=== PATIENT | female | born 1960 | race Caucasian/White ===

== ENCOUNTER 2018-06-25 13:07 | Observation (INO) ==
--- NOTE | 2018-06-25 13:33 | EKG Report ---
Test Performed on : 06/25/2018 1:29:26 PM Test Reason : tachycardia Blood Pressure : / mmHG Vent. Rate : 113 BPM Atrial Rate : 340 BPM P-R Int : 000 ms QRS Dur : 086 ms QT Int : 326 ms P-R-T Axes : 000 026 005 degrees QTc Int : 447 ms Atrial fibrillation. with rapid ventricular response. Abnormal ECG When compared with ECG of 25-MAR-2009 19:22, Atrial fibrillation. has replaced Sinus rhythm. Vent. rate has increased BY 41 BPM Nonspecific T wave abnormality now evident in Inferior leads Nonspecific T wave abnormality now evident in Anterolateral leads Unconfirmed Result
[2018-06-25] MEDS ORDERED: ASPIRIN PO ONE (13:58)
[2018-06-25] MEDS ORDERED: LOVENOX 1 MG/KG SUBQ ONE (13:58)
[2018-06-25] MEDS ORDERED: LOPRESSOR PO ONE (13:58)
[2018-06-25] MEDS ORDERED: CARDIZEM IV ONE (13:58)
[2018-06-25 14:00] LABS: BE -1.6 mmoll (-3.0-3.0); BLOOD TYPE ARTERIAL; HCO3-(ACT) 23.6 mmoll (20.0-26.0); METHB 1.3 % (0.0-1.5); O2(CT) 17.5 mL/dL (15.0-23.0); O2HB 94.8 % (95.0-99.0); PCO2(98.6) 31 mmHg (35-45); PO2(98.6) 79 mmHg (60-100); SAMPLE BLOOD; SAO2 98.2 % (95.0-100.0); THB 13.1 g/dL (11.5-17.4); pH(98.6) 7.45 (7.35-7.45)
[2018-06-25 14:03] LABS: ALLEN TEST NO; MODALITY ROOM AIR
[2018-06-25] MEDS ORDERED: LOVENOX ONE (14:24)
[2018-06-25 14:27] LABS: BASO# 0.05 X1000 (0.0-0.2); BASO% 0.5 % (0.0-0.8); EOS# 0.13 X1000 (0.0-0.7); EOS% 1.4 % (0.0-10.0); HEMATOCRIT 39.7 % (37.0-47.0); HEMOGLOBIN 13.6 g/dL (12.0-16.0); IMM GRAN# 0.03 X1000 (0.0-0.04); IMM GRAN% 0.3 % (0.0-0.5); LYMPH% 42.6 % (20.5-51.1); MCH 31.4 PG (27-31); MCHC 34.3 g/dL (33-37); MCV 91.7 FL (81-99); MONO# 0.71 X1000 (0.11-0.59); MONO% 7.6 % (1.7-9.3); MPV 10.5 FL (7.4-10.4); NEUT# 4.48 X1000 (1.4-6.5); NEUT% 47.6 % (42.2-75.2); PLT 292 X1000 (130-400); RBC 4.33 XMIL (4.2-5.4); RDW 13.4 % (11.5-14.5)
[2018-06-25 14:42] LABS: INFLUENZA A NEGATIVE (NEGATIVE); INFLUENZA B NEGATIVE (NEGATIVE)
[2018-06-25 14:42] LABS: PROTIME 13.7 Seconds (11.0-16.0)
[2018-06-25 14:43] LABS: PTT 27.8 Seconds (22.3-41.8)
[2018-06-25 14:46] LABS: AGAP 14; ALBUMIN 4.2 g/dL (3.5-5.0); ALKALINE PHOSPHATASE 112 U/L (32-104); BUN 15 mg/dL (8-22); CALCIUM 8.8 mg/dL (8.8-10.2); CHLORIDE 102 mmol/L (98-107); CK PROFILE 100 U/L (24-173); COSMO 276; CREATININE 0.5 mg/dL (0.5-0.9); ESTIMATED GFR > 60; GLUCOSE 85 mg/dL (70-104); GOT 52 U/L (10-30); GPT 22 U/L (10-36); POTASSIUM 4.8 mmol/L (3.5-5.1); SODIUM 138 mmol/L (136-145); TCO2 22 mmol/L (25-35)
[2018-06-25 14:50] LABS: BILIRUBIN URINE NEGATIVE (NEGATIVE); BLOOD URINE NEGATIVE (NEGATIVE); CLARITY CLEAR (CLEAR); COLOR YELLOW; GLUCOSE URINE NEGATIVE (NEGATIVE); KETONE URINE NEGATIVE (NEGATIVE); LEUKOCYTES URINE TRACE (NEGATIVE); NITRITE URINE NEGATIVE (NEGATIVE); PH URINE 6.5; PROTEIN URINE NEGATIVE (NEGATIVE); SP GRAVITY URINE 1.015; UROBILINOGEN URINE NORMAL
[2018-06-25 14:52] LABS: URINE SOURCE CLEAN CATCH
[2018-06-25 14:53] LABS: URINE BACTERIA 4+ /HFP; URINE CAST NONE SEEN /LPF; URINE CRYSTAL NONE SEEN /HPF; URINE EPITHELIAL CELLS <10 /HPF (<10); URINE RBC <10 /HPF (<10); URINE WBC <10 /HPF (<10); URINE YEAST NONE SEEN /HPF
[2018-06-25 14:59] LABS: UR AMPHETAMINES QUAL NONE DETECTED (NONE DETECT); UR BARBITUATES QUAL NONE DETECTED (NONE DETECT); UR BENZODIAZEPIN QUAL NONE DETECTED (NONE DETECT); UR CANNABINOIDS QUAL NONE DETECTED (NONE DETECT); UR COCAINE QUAL NONE DETECTED (NONE DETECT); UR METHADONE QUAL NONE DETECTED (NONE DETECT); UR METHAMPHETAMINE QUAL NONE DETECTED (NONE DETECT); UR OPIATES QUAL NONE DETECTED (NONE DETECT); UR OXYCODONE QUAL NONE DETECTED (NONE DETECT); UR PCP QUAL NONE DETECTED (NONE DETECT); UR PROPOXYPHENE QUAL NONE DETECTED (NONE DETECT); UR TCA QUAL NONE DETECTED (NONE DETECT)
--- NOTE | 2018-06-25 15:15 | Diag Imaging Result Doc PS360 ---
EXAM: CT HEAD W/O CONTRAST - 06/25/2018 HISTORY: dizziness, afib TECHNIQUE: CT head without contrast COMPARISON: None. FINDINGS: There is no evidence of intracranial hemorrhage, mass effect, midline shift, or hydrocephalus. There is no evidence of infarct, although acute infarcts may not be immediately visible. There is no evidence of skull fracture. Visualized portions of paranasal sinuses and mastoid air cells appear clear. IMPRESSION: No visible acute intracranial abnormality. This exam was performed using automated exposure control, adjustment of mA or kV according to patient size, and/or use of iterative reconstruction technique. Electronically signed by Claudy Potts 06/25/2018 3:13 PM
--- NOTE | 2018-06-25 15:32 | Diag Imaging Result Doc PS360 ---
EXAM: CT ANGIOGRM PULMONARY ARTERIES - 06/25/2018 HISTORY: difficulty breathing, left chest pain TECHNIQUE: CT angiogram pulmonary arteries with intravenous contrast. Axial, 2-D coronal MIP, and 3-D MIP images are obtained. COMPARISON: None. FINDINGS: There are no filling defects identified in the pulmonary arteries. There is no indication of aortic dissection. There is mild cardiomegaly. There is some hazy atelectasis or edema bilaterally. There is no dense consolidation, pleural effusion, or pneumothorax identified. IMPRESSION: No evidence of pulmonary embolism. Mild cardiomegaly. Possible mild pulmonary edema. No discrete pneumonia. Electronically signed by Claudy Potts 06/25/2018 3:30 PM
[2018-06-25] MEDS ORDERED: LASIX IV ONE (16:19)
--- NOTE | 2018-06-25 16:28 | PROVIDER DOCUMENTATION ---
This chart was entered by Elizabeth Evans Scribe, acting as scribe for Jez Swartz MD. HPI-General Adult - General Chief Complaint: Fall Stated Complaint: FALL 06/22 @HOME, LT RIB PAIN Time Seen by Provider: 06/25/18 13:35 Source: patient Allergies/Adverse Reactions: Patient Allergies Allergy/AdvReac Type Severity Reaction Status Date / Time sulfamethoxazole Allergy Intermediate fever, Verified 06/25/18 13:16 [From ] nausea and rash trimethoprim [From ] Allergy Intermediate fever, Verified 06/25/18 13:16 nausea and rash Home Medications: Home Medication List Medication Instructions Recorded Confirmed Last Taken Type Cyclobenzaprine [Flexeril] 10 mg PO TID #20 tab 12/30/17 Unknown Rx Ketorolac [Toradol] 10 mg PO Q6H PRN PRN #6 tab 12/30/17 Unknown Rx - History of Present Illness -Gen Adult Nature of Presenting Problems: Patient is a 58 year old female who presents to the ED with left side rib pain. Patient states she fell a few days ago landing on left side ribs. Patient states shortness of breath. Patient also states symptoms of headache, nausea, and dizziness that have been present for a while. Location of Pain/Injury: reports: other (left side ribs) Pain Radiation: reports: no radiation Quality of Pain: reports: aching Severity: reports: mild Onset/Duration: reports: 3 days ago Timing: reports: still present Context/Activities at Onset: reports: light activity Modifying Factors: improves with: nothing Associated Symptoms: reports: shortness of breath Similar Symptoms Previously?: Yes Recently seen or treated by another doctor?: No Review of Systems - Adult - REVIEW OF SYSTEMS - ADULT Constitutional: reports: no symptoms reported Eyes: reports: no symptoms reported Ears, Nose, Mouth & Throat: reports: no symptoms reported Cardiovascular: reports: no symptoms reported Respiratory: reports: shortness of breath. denies: cough, wheezing Gastrointestinal: reports: nausea. denies: abdominal pain, diarrhea, vomiting Genitourinary: reports: no symptoms reported Musculoskeletal: reports: other (left side rib pain). denies: back pain, neck pain Integumentary: reports: no symptoms reported Neurological: reports: dizziness/vertigo (dizziness), headache/migraines ([place]). denies: numbness, seizure, syncope Psychiatric: reports: no symptoms reported Endocrine: reports: no symptoms reported Hematologic/Lymphatic: reports: no symptoms reported Allergic/Immunologic: reports: no symptoms reported All Other Systems: Reviewed and Negative Past History - Adult - PAST MEDICAL HISTORY-ADULT Review of Records: reports: Nursing Assessment Review, Medications Reviewed, Social history reviewed & non-contributory. Major Childhood Illnesses: reports: denies history Cardiovascular: reports: denies history Respiratory: reports: denies history Gastrointestinal: reports: denies history Obstetrical/Gynecological: reports: denies history Genitourinary: reports: denies history Musculoskeletal: reports: chronic pain (neck and back) Neurological: reports: denies history Psychiatric: reports: denies history Endocrine/Immune: reports: denies history Other Conditions: reports: denies history - PRIOR SURGERIES/PROCEDURES Surgical/Procedure History: reports: reviewed, not pertinent - PRIOR HOSPITALIZATIONS Prior Hospitalizations: reports: none - IMMUNIZATION STATUS Childhood Immunizations: NUTD, See Nurse Assessment Flu Vaccine: See Nurse Assessment - FAMILY HISTORY Family History: reviewed, not pertinent - SOCIAL HISTORY Smoking: denies Substance Use: denies Living Situation: family Physical Exam-General - PHYSICAL EXAM-ADULT Initial Vital Signs Reviewed: Yes - CONSTITUTIONAL General Appearance: alert, no apparent distress - HEAD, EARS, NOSE, MOUTH & THROAT HENMT: normal ENT inspection - RESPIRATORY Respiratory: chest non-tender, lungs clear, normal breath sounds - CARDIOVASCULAR Cardiovascular: tachycardia, irregularly irregular - GASTROINTESTINAL (ABDOMEN) Abdominal Exam: normal bowel sounds, non tender, soft - MUSCULOSKELETAL Extremity: non-tender, normal inspection - SKIN Integumentary: normal color, normal turgor, warm/dry - NEUROLOGIC Neurologic: grossly normal - PSYCHIATRIC Psych/Mental Status: normal mood/affect, oriented x 3 Progress - PLAN OF CARE/RESULTS Progress/Plan/Lab Results: Vital Signs - 8 hr 06/25/18 13:12 Temperature 97.7 F Pulse Rate 120 H Respiratory Rate 18 Blood Pressure 136/89 O2 Sat by Pulse Oximetry 99 Orders Category Date Time Status Nursing- Obtain EKG once Care 06/25/18 13:37 Active Saline Loc NOW Care 06/25/18 13:37 Active ABG [RESP] Routine Lab 06/25/18 13:37 Ordered CBC WITH ELECTRONIC DIFF [HEME] Stat Lab 06/25/18 13:37 Uncollected CK PROFILE [SP CHEM] Stat Lab 06/25/18 13:41 Uncollected COMPREHENSIVE METABOLIC PANEL [CHEM] Stat Lab 06/25/18 13:37 Uncollected D-DIMER [COAG] Stat Lab 06/25/18 13:[address] Stat Lab 06/25/18 13:38 Uncollected PRO B-NATRIURETIC PEPTIDE Stat Lab 06/25/18 13:38 Uncollected PROTIME WITH INR [COAG] Stat Lab 06/25/18 13:38 Uncollected PTT [COAG] Stat Lab 06/25/18 13:38 Uncollected TROPONIN T Stat Lab 06/25/18 13:38 Uncollected TYPE & SCREEN [BBK] Stat Lab 06/25/18 13:[address] W/POSS RFLX CULT [URINALYSIS] Stat Lab 06/25/18 13:38 Uncollected URINE DRUG SCREEN PL Stat Lab 06/25/18 13:38 Uncollected EKG [EKG] Stat Ther 06/25/18 13:26 Draft EKG [EKG] Stat Ther 06/25/18 13:37 Ordered Result Diagrams: 06/25/18 14:15 06/25/18 14:15 - REASSESSMENT Reassessment #1 Time Reassessed: 16:26 Status: improving Reassessment Comment: rate controlled, states feels better. - EKG 1 Time of EKG reading by physician:: 13:29 EKG Read and Signed by:: Jez Swartz EKG Interpretation (*Must complete 3 of following elements*): Abnormal Rate: 113 Rhythm: atrial fibrillation with rapid ventricular response Comments: abnormal ECG - CT/MRI 1 CT Study: Head Impression: See EMR Report ( EXAM: CT HEAD W/O CONTRAST - 06/25/2018 HISTORY: dizziness, afib TECHNIQUE: CT head without contrast COMPARISON: None. FINDINGS: There is no evidence of intracranial hemorrhage, mass effect, midline shift, or hydrocephalus. There is no evidence of infarct, although acute infarcts may not be immediately visible. There is no evidence of skull fracture. Visualized portions of paranasal sinuses and mastoid air cells appear clear. IMPRESSION: No visible acute intracranial abnormality. This exam was performed using automated exposure control, adjustment of mA or kV according to patient size, and/or use of iterative reconstruction technique. Electronically signed by Claudy Potts 06/25/2018 3:13 PM 06/25/18 1513 Interpreting Physician: Claudy Potts MD Dictated Date/Time: 06/25/18 1509 cc: Jez Swartz MD; None,PCP) 2 CT Study: Angiogram Impression: See EMR Report ( EXAM: CT ANGIOGRM PULMONARY ARTERIES - 06/25/2018 HISTORY: difficulty breathing, left chest pain TECHNIQUE: CT angiogram pulmonary arteries with intravenous contrast. Axial, 2-D coronal MIP, and 3-D MIP images are obtained. COMPARISON: None. FINDINGS: There are no filling defects identified in the pulmonary arteries. There is no indication of aortic dissection. There is mild cardiomegaly. There is some hazy atelectasis or edema bilaterally. There is no dense consolidation, pleural effusion, or pneumothorax identified. IMPRESSION: No evidence of pulmonary embolism. Mild cardiomegaly. Possible mild pulmonary edema. No discrete pneumonia. Electronically signed by Claudy Potts 06/25/2018 3:30 PM 06/25/18 1530 Interpreting Physician: Claudy Potts MD Dictated Date/Time: 06/25/18 1522 cc: Jez Swartz MD; None,PCP) - CONSULTS/PCP/HOSPITALIST Notification #1 *Consult/PCP/Hospitalist*: Dr. Fairchild Time Discussed: 16:21 Reason/Comments: Dr. Swartz consulted with Dr. Fairchild about patient. Departure - Departure Date of Disposition Decision: 06/25/18 Time of Disposition Decision: 16:21 DIAGNOSIS: New onset of congestive heart failure, New onset atrial fibrillation, Atrial fibrillation with RVR Disposition: ADMITTED INPATIENT 09 Certified Medical Emergency: Emergent Condition: Fair Referrals and Follow-Ups: None,PCP [Primary Care Provider] - - Critical Care Note This patient required my direct & personal management of CC.: Yes Total Time (mins): 40 Critical Care Statement: This patient required my direct personal management to treat or rule out processes, the absence of which, could potentiallly result in sudden, clinically significant life or limb threatening deterioration. Attestation - Physician/ WILNER Attestation Patient care was provided by Advanced Practice Provider:: No The physician spent face to face time with patient:: Yes Advanced Practice Provider documentation review:: Supervising physician onsite and consulted in the evaluation and care of this patient. The physician did have a face to face encounter with the patient. This chart was documented by the indicated scribe, (Elizabeth Evans, Margo) and accurately reflects the services I performed and decisions made by me, Jez Swartz MD, as attested by the provider's signature.
--- NOTE | 2018-06-25 17:38 | HISTORY AND PHYSICAL ---
PRIMARY CARE PHYSICIAN: None. CHIEF COMPLAINT: Fall at home on 06/22/2018 onto her left side causing left rib pain. Also complained of shortness of breath, headache, nausea, dizziness, and palpitations that have been present for several months. HISTORY OF PRESENTING ILLNESS: This is a 58-year-old female who presents to [facility] ER with complaints that she fell on 06/22/2018 at home onto her left side on her landing and was having left-sided rib pain. She states also that she has been having shortness of breath, a headache, nausea, dizziness, and for the past several months has been having palpitations. Workup in the emergency room showed CT of the head to be no visible acute intracranial abnormality. Pulmonary arteriogram showed no evidence of a PE, mild cardiomegaly, possible mild pulmonary edema. No discrete pneumonia. No mention of any broken ribs noted either. We did an EKG that showed atrial fibrillation with a rapid ventricular response at 113. When she arrived, her heart rate was 120 and this is new onset with no previous history noted of atrial fibrillation, so she will be admitted for further evaluation and treatment. PAST MEDICAL HISTORY: Chronic pain. PAST SURGICAL HISTORY: Bilateral tubal ligation. FAMILY HISTORY: Reviewed and noncontributory. SOCIAL HISTORY: She currently lives with family. Denies any tobacco, alcohol, or illicit drug use. ALLERGIES: Sulfa drugs. HOME MEDICATIONS: Will need to be verified and then we will review and restart as appropriate. I will place an order for nursing to update and confirm home medications. LABORATORY DATA: Showed a white blood cell count of 9.40, hemoglobin 13.6, hematocrit 39.7, platelets 292,000. PT and INR of 13.7 and 1 with a D-dimer of 0.30. ABG showed a pH of 7.45, pCO2 31, PO2 79, bicarb 23.6; this was all on 21% room air. Sodium 138, potassium 4.8, chloride 102, CO2 22, BUN of 15, creatinine 0.5, glucose 85. Cardiac enzyme was negative. ProBNP of 1,568. Urinalysis was negative except for 4+ bacteria and trace white blood cells. Urine drug screen was negative. Influenza A and B negative. EKG showed atrial fibrillation with RVR at 113. Head CT showed no visible acute intracranial abnormality. Pulmonary arteriogram showed no evidence of pulmonary embolism, mild cardiomegaly, possible mild pulmonary edema, but no discrete pneumonia. REVIEW OF SYSTEMS: She denied any fever, chills, blurred vision. She was positive for dizziness, headache, shortness of breath, palpitations, nausea, left-sided rib pain status post her fall. Denied any constipation, diarrhea, burning or hurting with urination. PHYSICAL EXAMINATION: VITAL SIGNS: On arrival she had a temperature of 97.7, her pulse was 120, respirations 18, blood pressure 136/89, saturating 99% on room air. GENERAL: This is a 58-year-old female who is lying in the bed and answers questions appropriately. HENT: Normocephalic, atraumatic. Normal ENT inspection. Oropharynx and nares are clear. EYES: Pupils are equal, round, reactive to light and accommodation. Extraocular movements are intact. NECK: Normal inspection. Normal range of motion. LUNGS: Clear to auscultation bilaterally with equal lung expansion and chest wall movement. HEART: With an irregular rate and rhythm, but no murmurs, rubs, or gallops. ABDOMEN: Soft, nontender, nondistended. Bowel sounds are present x4 quadrants. MUSCULOSKELETAL: She has 5/5 strength x4 extremities. NEUROLOGICAL: The cranial nerves 2-12 appear grossly intact. ASSESSMENT: 1. Recent fall. 2. Left-sided rib pain. 3. New onset atrial fibrillation with rapid ventricular response. PLAN: She will be admitted, placed on telemetry, O2 per protocol. We will update and confirm home medications as previously stated. We will check an echocardiogram in the a.m. In the emergency room she did receive metoprolol 25 mg p.o. x1, Lasix 20 mg IV x1, Lovenox 1 mg/kg subcutaneously x1, and Cardizem 20 mg IV x1. I am going to place her on Cardizem 30 mg p.o. q.6 hours. Further orders will be after seen by attending. Dictated by MENDOZA Harris for Armen Fairchild MD cc: MENDOZA Harris MD
[2018-06-25] MEDS ORDERED: TYLENOL PO PRN (18:48)
[2018-06-25] MEDS ORDERED: ZOFRAN IV PRN (18:48)
--- NOTE | 2018-06-25 20:29 | PROGRESS NOTE ---
DATE: 06/25/2018 A 58-year-old female presenting with left-sided chest pain or rib pain. She fell, and she thought perhaps she had a rib fracture. Her workup was negative, but she did have what was felt to be initially atrial fibrillation with RVR. It looked like possibly it could be also atrial flutter with a variable block. There were questionable flutter waves there. She has never had a previous diagnosis. At this point, she is rate controlled. Her EDITH score is she is female, but no other major risk factors. At this point, she really just needs an aspirin. She has been placed on Cardizem which I completely agree with, and we will observe her and make sure she has no further episodes. As far as her diagnosis of CHF, at this point, (1) I do not think we have clear evidence that that is what is going on, she does have an elevated proBNP, and (2) She has questionable pulmonary edema per her chest CT, but with atrial fibrillation with RVR, it could simply be related to her atrial fibrillation and not true systolic or diastolic dysfunction. I think it is a bit premature to describe this patient as having congestive heart failure. She did receive Cardizem and metoprolol. We will maintain her on metoprolol. We will get thyroid function studies, echocardiogram. If stable, anticipate discharge tomorrow, and she can follow up with Cardiology. Need to maintain her potassium and magnesium above 4 and 2, respectively. cc: Armen Fairchild MD
[2018-06-25] MEDS: CARDIZEM PO SCH (21:16)
[2018-06-26] MEDS: CARDIZEM PO SCH ×2 (03:59→10:02)
[2018-06-26] MEDS ORDERED: LOVENOX SUBQ SCH (06:00)
[2018-06-26 07:21] LABS: BASO# 0.04 X1000 (0.0-0.2); BASO% 0.5 % (0.0-0.8); EOS# 0.18 X1000 (0.0-0.7); EOS% 2.3 % (0.0-10.0); HEMATOCRIT 39.6 % (37.0-47.0); HEMOGLOBIN 13.3 g/dL (12.0-16.0); IMM GRAN# 0.03 X1000 (0.0-0.04); IMM GRAN% 0.4 % (0.0-0.5); LYMPH# 2.91 X1000 (1.2-3.4); LYMPH% 37.5 % (20.5-51.1); MCH 30.7 PG (27-31); MCHC 33.6 g/dL (33-37); MCV 91.5 FL (81-99); MONO# 0.74 X1000 (0.11-0.59); MONO% 9.5 % (1.7-9.3); MPV 10.5 FL (7.4-10.4); NEUT# 3.87 X1000 (1.4-6.5); NEUT% 49.8 % (42.2-75.2); PLT 304 X1000 (130-400); RBC 4.33 XMIL (4.2-5.4); RDW 13.4 % (11.5-14.5); WBC 7.77 X1000 (4.8-10.8)
[2018-06-26 07:42] LABS: AGAP 14; BUN 13 mg/dL (8-22); CHLORIDE 100 mmol/L (98-107); COSMO 276; CREATININE 0.5 mg/dL (0.5-0.9); ESTIMATED GFR > 60; GLUCOSE 95 mg/dL (70-104); POTASSIUM 3.8 mmol/L (3.5-5.1); SODIUM 138 mmol/L (136-145); TCO2 24 mmol/L (25-35)
[2018-06-26] MEDS ORDERED: ASPIRIN EC PO SCH (09:00)
--- NOTE | 2018-06-26 10:37 | DISCHARGE SUMMARY ---
ADMISSION DATE: 06/25/2018 DISCHARGE DATE: 06/26/2018 DISCHARGE DIAGNOSIS: New onset atrial fibrillation with rapid ventricular rate response. HOSPITAL COURSE: This is a 58-year-old female who presented to the [facility] Emergency Room after she had a fall on 06/22/2018 at home onto her left side and her left chest wall. She was x-rayed and no rib fractures were noted. She also had a pulmonary CT angiogram that showed no pulmonary embolism, but she did have atrial fibrillation with rapid ventricular response at 113. She was therefore admitted to the hospital and was initiated on diltiazem 60 mg orally every 6 hours. Since she did not have any risk factors she was started only on 81 aspirin for anticoagulation. The patient's condition has been stable and her heart rate has been in 70s. Because of which she will be discharged home today. She will have an echocardiogram done before she goes home. I discussed with her in detail and advised her to follow up with Cardiology once discharged from the hospital. DISCHARGE MEDICATIONS: 1. Diltiazem CD 240 mg orally once daily. 2. Aspirin 81 mg orally once daily. FOLLOWUP: 1. Followup with Dr. Brown, in 1 to [address] Harding in 1 to 2 weeks as well. CONDITION: Stable. DISPOSITION: Home. cc: MD Armen Cassidy MD
--- NOTE | 2018-06-26 11:41 | EKG Report ---
Test Performed on : 06/26/2018 10:19:25 AM Test Reason : Check for any changes Blood Pressure : / mmHG Vent. Rate : 099 BPM Atrial Rate : 258 BPM P-R Int : 000 ms QRS Dur : 076 ms QT Int : 390 ms P-R-T Axes : 000 032 035 degrees QTc Int : 500 ms Atrial fibrillation. Nonspecific T wave abnormality Abnormal ECG When compared with ECG of 25-JUN-2018 13:29, (Unconfirmed) No significant change was found Confirmed by Galo Caraballo MD ([id number]) on 06/27/2018 7:40:06 AM
[2018-06-26 11:55] VITALS: BP 112/71
--- NOTE | 2018-06-26 15:33 | ECHO REPORT ---
ORDER DATE: 06/26/2018 ECHOCARDIOGRAPHIC MEASUREMENTS: 1. Interventricular septum 1.0. 2. Left ventricular posterior wall 1.0. 3. Diastolic diameter 3.8. 4. Left atrium 3.6. 5. Aorta 3.6. SUMMARY OF 2-DIMENSION IMAGIN. There is mild biatrial enlargement. 2. Aortic valve leaflets are trileaflet. 3. Mitral valve was normal. 4. Tricuspid valve was normal. 5. Pulmonic valve was normal. There is trace pulmonary regurgitation. 6. There is moderate tricuspid regurgitation. 7. There is mild mitral regurgitation. 8. Peak velocity across the tricuspid valve was 2.7 m/sec. 9. Pulmonary artery systolic pressure of 40 mmHg. 10. Atrial fibrillation was noted. 11. Peak velocity across the aortic valve less than 2 m/sec. 12. There is no aortic stenosis or regurgitation. 13. Normal left ventricular cavity size. Estimated ejection fraction of 60%. 14. There is no pericardial effusion or obvious intracardiac mass or thrombus seen. cc: MD Noemi Draper CRNP Alexis R. Penot, MD
== END 2018-06-26 12:13 | disposition home or self-care (01) ==
LOC: P.ED 13:07 → P.MEDSURG 13:07 → SUATTDRO 18:20
PROVIDERS: ADMIT Internal Medicine; ATTEND Internal Medicine
CPT/HCPCS: 36415; 70450; 71275; 80048; 80053; 80104; 80301; 80305; 81001; 82550; 82805; 83735; 83880; 84484; 85025; 85379; 85610; 85730; 86850; 86900; 86901; 87077; 87088; 87186; 87275; 87276; 87804; 93005; 93010; 93306; 96372; 96374; 96375; 99285; 99291; A9270; G0378; G0431; G0434; G0477; J1650; J1940; Q9967